=== PATIENT | female | born 1990 | race Two or more races ===

== ENCOUNTER → 2017-11-20 16:16 | Outpatient (CLI) | payer OTHER ==
[~2017-11-20] VITALS: Ht 152.4 cm; Wt 46.3 kg
[~2017-11-20 16:16] MED LIST: PRILOSEC OTC20 MG PO; ZANTAC150 MG PO
== END | disposition home or self-care (01) ==
LOC: PPHC 16:16
DX: L70.8 Other acne (principal); Z00.00 Encounter for general adult medical examination without abnormal findings

== ENCOUNTER 2017-11-21 07:36 | Outpatient (CLI) | payer OTHER | END 2017-11-21 07:43 | disposition home or self-care (01) | LOC: LAB 07:36 | DX: Z00.00 Encounter for general adult medical examination without abnormal findings (principal) ==

== ENCOUNTER 2017-11-27 07:34 | Outpatient (CLI) | payer OTHER | END 2017-11-27 14:35 | disposition home or self-care (01) | LOC: LAB 07:34 | DX: E03.8 Other specified hypothyroidism (principal); N91.2 Amenorrhea, unspecified ==

== ENCOUNTER 2017-12-08 06:55 | Outpatient (CLI) | payer OTHER | END 2017-12-08 07:00 | disposition home or self-care (01) | LOC: LAB 06:55 | DX: N92.5 Other specified irregular menstruation (principal) ==

== ENCOUNTER 2018-01-01 15:33 | Outpatient (CLI) | payer OTHER | END 2018-01-01 15:42 | disposition home or self-care (01) | LOC: SONOGRAMA 15:33 | DX: N83.209 Unspecified ovarian cyst, unspecified side (principal) ==

== ENCOUNTER 2018-07-27 07:01 | Outpatient (CLI) | payer OTHER | END 2018-07-27 07:15 | disposition home or self-care (01) | LOC: LAB 07:01 | DX: J03.90 Acute tonsillitis, unspecified (principal) ==

== ENCOUNTER 2018-07-30 06:47 | Emergency (ER) | payer OTHER ==
[~2018-07-30] VITALS: Ht 160 cm; Wt 46.3 kg
== END 2018-07-30 10:27 | disposition home or self-care (01) ==
LOC: ER 06:47
DX: R53.1 Weakness (principal); H10.89 Other conjunctivitis

== ENCOUNTER 2018-08-27 09:22 | Outpatient (CLI) | payer OTHER | END 2018-08-27 09:29 | disposition home or self-care (01) | LOC: LAB 09:22 | DX: E78.2 Mixed hyperlipidemia (principal); E03.8 Other specified hypothyroidism; E11.65 Type 2 diabetes mellitus with hyperglycemia ==

== ENCOUNTER 2018-11-29 07:33 | Outpatient (CLI) | payer OTHER | END 2018-11-29 07:40 | disposition home or self-care (01) | LOC: LAB 07:33 | DX: R80.8 Other proteinuria (principal); N39.0 Urinary tract infection, site not specified ==

== ENCOUNTER 2018-12-03 07:40 | Outpatient (CLI) | payer OTHER | END 2018-12-03 07:45 | disposition home or self-care (01) | LOC: LAB 07:40 | DX: R80.8 Other proteinuria (principal); N39.0 Urinary tract infection, site not specified ==

== ENCOUNTER 2019-01-17 07:46 | Outpatient (CLI) | payer OTHER | END 2019-01-17 13:28 | disposition home or self-care (01) | LOC: LAB 07:46 | DX: I10 Essential (primary) hypertension (principal); E11.8 Type 2 diabetes mellitus with unspecified complications; E03.8 Other specified hypothyroidism; E55.9 Vitamin D deficiency, unspecified; N39.0 Urinary tract infection, site not specified; M32.10 Systemic lupus erythematosus, organ or system involvement unspecified; M05.79 Rheumatoid arthritis with rheumatoid factor of multiple sites without organ or systems involvement; M10.09 Idiopathic gout, multiple sites; M33.20 Polymyositis, organ involvement unspecified; M70.52 Other bursitis of knee, left knee; M70.51 Other bursitis of knee, right knee ==

== ENCOUNTER 2019-01-17 10:58 | Outpatient (CLI) | payer OTHER ==
[~2019-01-17] VITALS: Ht 160 cm; Wt 47.6 kg
== END 2019-01-17 11:15 | disposition home or self-care (01) ==
LOC: OFIC 805 10:58
DX: H61.23 Impacted cerumen, bilateral (principal); L30.9 Dermatitis, unspecified

== ENCOUNTER → 2019-01-24 | Outpatient (CLI) | payer OTHER | END | disposition home or self-care (01) | LOC: NUCLEAR 07:00 | DX: M05.79 Rheumatoid arthritis with rheumatoid factor of multiple sites without organ or systems involvement (principal); M87.059 Idiopathic aseptic necrosis of unspecified femur | CPT/HCPCS: 78315; A9503 ==

== ENCOUNTER → 2019-02-19 06:45 | Outpatient (CLI) | payer OTHER | END | disposition home or self-care (01) | LOC: LAB 06:45 | DX: D68.62 Lupus anticoagulant syndrome (principal); M32.10 Systemic lupus erythematosus, organ or system involvement unspecified; M45.0 Ankylosing spondylitis of multiple sites in spine; M15.8 Other polyosteoarthritis; M46.1 Sacroiliitis, not elsewhere classified; M70.71 Other bursitis of hip, right hip; M70.72 Other bursitis of hip, left hip ==

== ENCOUNTER → 2019-03-04 | Outpatient (CLI) | payer OTHER | END | disposition home or self-care (01) | LOC: NUCLEAR 02-25 07:00 | DX: I47.1 Supraventricular tachycardia (principal) ==

== ENCOUNTER 2019-04-09 06:43 | Outpatient (CLI) | payer OTHER | END 2019-04-09 06:53 | disposition home or self-care (01) | LOC: LAB 06:43 | DX: E03.8 Other specified hypothyroidism (principal); I10 Essential (primary) hypertension; E11.9 Type 2 diabetes mellitus without complications; E55.9 Vitamin D deficiency, unspecified; M32.10 Systemic lupus erythematosus, organ or system involvement unspecified; M05.79 Rheumatoid arthritis with rheumatoid factor of multiple sites without organ or systems involvement; N39.0 Urinary tract infection, site not specified; N20.0 Calculus of kidney ==

== ENCOUNTER 2019-05-11 07:28 | Outpatient (CLI) | payer OTHER | END 2019-05-11 10:31 | disposition home or self-care (01) | LOC: LAB 07:28 | DX: E03.8 Other specified hypothyroidism (principal); M32.10 Systemic lupus erythematosus, organ or system involvement unspecified ==

== ENCOUNTER 2019-08-21 06:49 | Outpatient (CLI) | payer OTHER | END 2019-08-21 15:00 | disposition home or self-care (01) | LOC: LAB 06:49 | DX: M32.10 Systemic lupus erythematosus, organ or system involvement unspecified (principal) ==

== ENCOUNTER → 2019-09-02 07:29 | Outpatient (CLI) | payer OTHER | END | disposition home or self-care (01) | LOC: LAB 07:29 | DX: M32.8 Other forms of systemic lupus erythematosus (principal) ==

== ENCOUNTER 2020-01-29 09:32 | Outpatient (CLI) | payer OTHER | END 2020-01-29 09:40 | disposition home or self-care (01) | LOC: LAB 09:32 | DX: J11.1 Influenza due to unidentified influenza virus with other respiratory manifestations (principal) ==

== ENCOUNTER 2020-08-01 08:32 | Outpatient (CLI) | payer OTHER | END 2020-08-01 08:37 | disposition home or self-care (01) | LOC: RAD 08:32 | PROVIDERS: ATTEND Podiatrist Foot Surgery | DX: M77.31 Calcaneal spur, right foot (principal); M77.32 Calcaneal spur, left foot ==

== ENCOUNTER 2020-08-25 17:23 | Outpatient (CLI) | payer OTHER | END 2020-08-25 19:15 | disposition home or self-care (01) | LOC: PPH VACUNA 17:23 | DX: Z23 Encounter for immunization (principal) ==

== ENCOUNTER 2020-08-27 16:29 | Outpatient (CLI) | payer OTHER | END 2020-08-28 15:47 | disposition home or self-care (01) | LOC: LAB 16:29 | PROVIDERS: ATTEND Internal Medicine Rheumatology | DX: M32.10 Systemic lupus erythematosus, organ or system involvement unspecified (principal) ==

== ENCOUNTER → 2020-11-09 18:00 | Outpatient (CLI) | payer OTHER | END | disposition home or self-care (01) | LOC: PPH VACUNA 18:00 | DX: Z23 Encounter for immunization (principal) ==

== ENCOUNTER 2021-05-11 08:58 | Emergency (ER) | payer OTHER ==
[~2021-05-11] VITALS: Ht 160 cm; Wt 49.0 kg
[2021-05-11] MEDS ORDERED: HYDROXYCHLOROQ200 MG (09:08)
[2021-05-11] MEDS ORDERED: SPRINTEC 28 DA1 EACH (09:09)
[2021-05-11] MEDS ORDERED: AIRBORNE EFFER1 EACH PO (11:55)
[2021-05-11] MEDS ORDERED: KETO10TA2 PO (11:55)
[2021-05-11] MEDS ORDERED: PEPCID AC20 MG PO (11:55)
== END 2021-05-11 11:59 | disposition home or self-care (01) ==
LOC: ER 08:58
DX: B34.9 Viral infection, unspecified (principal); Z11.52 Encounter for screening for COVID-19

== ENCOUNTER 2021-06-08 10:44 | Outpatient (CLI) | payer OTHER ==
[~2021-06-08 10:44] MED LIST changes: +AIRBORNE EFFER1 EACH PO; +HYDROXYCHLOROQ200 MG; +KETO10TA2 PO; +PEPCID AC20 MG PO; +SPRINTEC 28 DA1 EACH
== END 2021-06-08 10:48 | disposition home or self-care (01) ==
LOC: LAB 10:44
PROVIDERS: ATTEND Internal Medicine Endocrinology, Diabetes & Metabolism
DX: E03.8 Other specified hypothyroidism (principal); E78.01 Familial hypercholesterolemia; E11.65 Type 2 diabetes mellitus with hyperglycemia

== ENCOUNTER → 2021-07-02 08:42 | Outpatient (CLI) | payer OTHER | END | disposition home or self-care (01) | LOC: RAD 08:42 | DX: M99.11 Subluxation complex (vertebral) of cervical region (principal) ==

== ENCOUNTER 2021-09-14 09:10 | Outpatient (CLI) | payer OTHER | END 2021-09-14 09:30 | disposition home or self-care (01) | LOC: PPH VACUNA 09:10 | PROVIDERS: ATTEND Emergency Medicine Pediatric Emergency Medicine | DX: Z23 Encounter for immunization (principal) ==

== ENCOUNTER 2021-09-27 08:00 | Outpatient (CLI) | payer OTHER | END 2021-09-27 08:30 | disposition home or self-care (01) | LOC: PPH VACUNA 08:00 | PROVIDERS: ATTEND Emergency Medicine Pediatric Emergency Medicine | DX: Z23 Encounter for immunization (principal) ==

== ENCOUNTER 2021-10-18 10:20 | Emergency (ER) | payer OTHER ==
[~2021-10-18] VITALS: Ht 160 cm; Wt 49.9 kg
[2021-10-18] MEDS ORDERED: ALLERGY RELIEF10 M3 PO (10:33)
[2021-10-18] MEDS ORDERED: MINOCYCLINE HC100 M1 PO (10:34)
[2021-10-18] MEDS ORDERED: ZITHROMAX500 MG PO (15:01)
== END 2021-10-18 15:06 | disposition home or self-care (01) ==
LOC: ER 10:20
DX: B34.9 Viral infection, unspecified (principal); Z20.822 Contact with and (suspected) exposure to COVID-19

== ENCOUNTER 2021-10-21 10:19 | Outpatient (CLI) | payer OTHER ==
[~2021-10-21 10:19] MED LIST changes: +ALLERGY RELIEF10 M3 PO; +MINOCYCLINE HC100 M1 PO; +ZITHROMAX500 MG PO
== END 2021-10-21 10:30 | disposition home or self-care (01) ==
LOC: LAB 10:19
PROVIDERS: ATTEND Internal Medicine Rheumatology
DX: M35.89 Other specified systemic involvement of connective tissue (principal); M32.10 Systemic lupus erythematosus, organ or system involvement unspecified; M33.20 Polymyositis, organ involvement unspecified; M05.79 Rheumatoid arthritis with rheumatoid factor of multiple sites without organ or systems involvement; M10.09 Idiopathic gout, multiple sites; M35.00 Sjogren syndrome, unspecified

== ENCOUNTER 2022-08-03 08:00 | Outpatient (CLI) | payer OTHER | END 2022-08-03 08:05 | disposition home or self-care (01) | LOC: PPH VACUNA 08:00 | PROVIDERS: ATTEND Emergency Medicine Pediatric Emergency Medicine | DX: Z23 Encounter for immunization (principal) ==

== ENCOUNTER 2022-12-30 08:33 | Emergency (ER) | payer OTHER ==
[~2022-12-30] VITALS: Ht 160 cm; Wt 48.5 kg
[2022-12-30] MEDS ORDERED: SPRINTEC 28 DA1 EACH PO (09:07)
[2022-12-30] MEDS ORDERED: OXYBUTYNIN CHLO10 MG PO (09:07)
[2022-12-30] MEDS ORDERED: SPIRONOLACTONE25 MG PO (09:08)
== END 2022-12-30 14:23 | disposition home or self-care (01) ==
LOC: ER 08:33
DX: J03.90 Acute tonsillitis, unspecified (principal); B34.8 Other viral infections of unspecified site; Z20.822 Contact with and (suspected) exposure to COVID-19

== ENCOUNTER 2023-04-19 14:43 | Outpatient (CLI) | payer OTHER ==
[~2023-04-19 14:43] MED LIST changes: +OXYBUTYNIN CHLO10 MG PO; +SPIRONOLACTONE25 MG PO; +SPRINTEC 28 DA1 EACH PO
== END 2023-04-19 14:50 | disposition home or self-care (01) ==
LOC: RAD 14:43
PROVIDERS: ATTEND Orthopaedic Surgery
DX: M25.572 Pain in left ankle and joints of left foot (principal)

== ENCOUNTER 2023-08-18 07:17 | Outpatient (CLI) | payer OTHER | END 2023-08-18 07:27 | disposition home or self-care (01) | LOC: PPH VACUNA 07:17 | PROVIDERS: ATTEND Emergency Medicine Pediatric Emergency Medicine | DX: Z23 Encounter for immunization (principal) ==

== ENCOUNTER 2023-08-24 07:33 | Outpatient (CLI) | payer OTHER | END 2023-08-24 07:49 | disposition home or self-care (01) | LOC: SONOGRAMA 07:33 | PROVIDERS: ATTEND Urology | DX: N20.0 Calculus of kidney (principal) ==

== ENCOUNTER 2023-09-03 12:44 | Emergency (ER) | payer OTHER ==
[~2023-09-03] VITALS: Ht 160 cm; Wt 48.1 kg
[2023-09-03] MEDS ORDERED: HYDROXYCHLOROQ200 MG PO (13:09)
[2023-09-03 15:54] LABS: HEMATOCRIT 39.1 % (36.0-45.00); HEMOGLOBIN 12.9 g/dL (12.0-15.00); MEAN CELL VOLUME 89.5 fL (80.00-100.00); MEAN CORPUSCULAR HEMOGLOBIN 29.5 pg (27.00-32.0); MEAN CORPUSCULAR HGB CONC 32.9 g/dl (32.0-36.0); PLATELET COUNT 235 K/uL (150-450); RED BLOOD COUNT 4.36 M/uL (4.00-6.00); RED CELL DISTRIBUTION WIDTH 13.6 % (11.5-14.5)
[2023-09-03] MEDS ORDERED: CEPHALEXIN500 MG PO (16:13)
== END 2023-09-03 18:02 | disposition home or self-care (01) ==
LOC: ER 12:44
PROVIDERS: General Practice
DX: R53.81 Other malaise (principal); R68.89 Other general symptoms and signs; J02.9 Acute pharyngitis, unspecified; Z20.822 Contact with and (suspected) exposure to COVID-19

== ENCOUNTER 2025-09-09 10:56 | Outpatient (CLI) | payer OTHER ==
[~2025-09-09 10:56] MED LIST changes: +CEPHALEXIN500 MG PO; +HYDROXYCHLOROQ200 MG PO
== END 2025-09-09 11:04 | disposition home or self-care (01) ==
LOC: RAD 10:56
PROVIDERS: ATTEND Internal Medicine Endocrinology, Diabetes & Metabolism
DX: M54.59 Other low back pain (principal)